=== PATIENT | female | born 1990 | race Caucasian/White ===

== ENCOUNTER 2018-05-26 08:18 | Day surgery (SDC) | payer OTHER, SELFPAY ==
[2018-05-20 17:38] LABS: Hematocrit 39.6 % (37-47); Hemoglobin 12.9 g/dl (12.0-15.0); Mean Corp Hgb Conc 32.6 g/gl (32-36); Mean Corpuscular Hgb 30.5 pg (27.0-32.0); Mean Corpuscular Volume 93.6 fL (81-99); Mean Platelet Vol. 9.7 fl (6.2-12.0); Platelet Count 277 K/mm3 (150-450); RBC Distribution Width CV 12.7 % (11.6-14.6); Red Blood Count 4.23 M/mm3 (4.2-5.4); Scan Indicated on CBC? Y/N NO; White Blood Count 7.2 K/mm3 (4.4-11.0)
[2018-05-20 17:51] LABS: Prothrombin Time (Protime)PT. 13.6 SECONDS (11.7-14.9)
[2018-05-20 17:52] LABS: Partial Thromboplast Time 34.4 Seconds (24.1-36.2)
[2018-05-20 18:06] LABS: AST(SGOT) 33 U/L (15-37); Alanine Aminotransfer ALT/SGPT 77 U/L (13-56); Albumin, Serum 4.4 g/dL (3.2-5.0); Alkaline Phosphatase 54 U/L (45-117); Bilirubin, Direct 0.47 mg/dL (0.00-0.30); Globulin 3.6 g/dL (2.2-4.2)
[2018-05-26 08:42] LABS: Internal QC Validated? YES +Cl - CLEAR BKGD; Pregnancy, Urine Negative Negative
[2018-05-26 08:44] VITALS: BP 131/82; PULSE 78; RESP 16; TEMP 37.1; O2SAT 100; BMI 25.4
[2018-05-26] MEDS: Heparin Injection (Vial) 5,000 UNIT/ML VIAL 5000 UNIT SC (08:59)
[2018-05-26] MEDS: Bupivacaine Mpf 0.5% 30 ML VIAL (11:44)
[2018-05-26 11:59] VITALS: BP 116/83; BP 131/82; PULSE 109; RESP 18; TEMP 37.4; O2SAT 99
[2018-05-26 12:01] LABS: Bilirubin, Direct 0.47 mg/dL (0.00-0.30); Indirect Bilirubin 1.53 mg/dL (0.00-1.00)
--- NOTE | 2018-05-26 12:01 | PCM.IMDPSTOP ---
Problem List (1) Dysmenorrhea Status: Acute Immediate Post-Op Note Date of Procedure: 05/26/18 Primary Surgeon/Physician: Edith Mcduffie, law office manager: Liv Dinero Post-Operative Diagnosis: Dysmenorrhea Surgery/Procedure Performed:: Dysmenorrhea Description of Surgical Findings:: Normal pelvic anatomy No evidence of endometriosis Scant bowel adhesions Estimated Blood Loss: 10ml Specimen's removed: none Type of Anesthesia:: General - Admit VTE Documentation VTE Present on Admission: No VTE Mechan Device Prophylaxis: SCD's VTE Pharm Prophylaxis ordered?: No
--- NOTE | 2018-05-26 12:04 | DCINST_ITS ---
- Discharge Diagnoses Current Active Problems: Current Active and Chronic Problems Dysmenorrhea (Acute) - painful periods You will use the following diet at home:: No restrictions Your food should be the consistency of: Regular Discharge Activity: Return to Normal Activity, May not drive while taking narcotic pain medications., May Shower, - - No driving for 48-72 hours May resume sexual activity in: - - 2-4 weeks Lifting Restrictions: 10-20 lb Call your doctor if your incision/area has: Continuous Slow Oozing, Sudden Increased Bleeding, Increased Pain/ Swelling, Increased Redness Call your doctor if you observe: Fever of 101 or Higher, Inability to urinate, Inability to have a bowel movement, Using more than one pad per hour, Shortness of breath, Chest pain, Calf discomfort, Uncontrolled pain Suture Line Care: Avoid Pulling/Pushing Remove Dressing in (days):: 1 Cleanse incision/area with: Soap & Water Allergies/Adverse Reactions: Allergies No Known Allergies Allergy (Verified 05/19/18 11:14) Medications to take at Discharge Nilotinib HCl [Tasigna] 300 mg PO BID 04/18/15 Potassium Chloride [K-Dur] 20 meq PO BID 10/09/16 Docusate Sodium [Colace] 100 mg PO BID PRN PRN #60 cap 05/26/18 Oxycodone [Oxyir] 5 mg PO Q4H PRN PRN 3 Days #18 tablet 05/26/18 The following prescriptions were given: Oxycodone [Oxyir] 5 mg PO Q4H PRN PRN 3 Days #18 tablet PRN Reason: Severe Pain (6-10/10) Docusate Sodium [Colace] 100 mg PO BID PRN PRN #60 cap PRN Reason: Constipation Primary Care Physician: Salvatore Dinero MD [Primary Care Provider] - Test Results: Test results from this visit will be discussed in further detail at your follow- up appointment, if applicable. Please Follow Up With: Edith Mcduffie MD When: 2-4 weeks
[2018-05-26 12:15] VITALS: BP 114/77; BP 131/82; PULSE 102; RESP 18; O2SAT 100
[2018-05-26 12:16] LABS: GGTP 43 U/L (5-55)
[2018-05-26 12:30] VITALS: BP 118/77; BP 131/82; PULSE 88; RESP 18; O2SAT 97
[2018-05-26 12:40] VITALS: BP 110/80; BP 131/82; PULSE 77; RESP 18; TEMP 36.8; O2SAT 98
[2018-05-26 13:42] VITALS: BP 109/69; BP 131/82; PULSE 90; RESP 16; TEMP 37.1; O2SAT 96
--- NOTE | 2018-05-26 20:00 | PCM.OPRPT ---
Problem List (1) Dysmenorrhea Status: Acute Report of Operation Date of Procedure: 05/26/18 Pre-Operative Diagnosis: Dysmenorrhea, r/o endometriosis Post-Operative Diagnosis: Dysmenorrhea Surgery/Procedure Performed:: Dysmenorrhea Description of Surgical Findings:: Normal pelvic anatomy No evidence of endometriosis Scant bowel adhesions high school professional: Liv Dinero Type of Anesthesia:: General Anesthesiologist: Jamie Kasper Specimen's removed: none Estimated Blood Loss (mL): 10ml Fluids Replaced: 1000mL Description of Procedure: Indications: Ms. Botello is a 28-year-old nulligravida with history of dysmenorrhea refractory to medical management. Following counseling she opted to proceed with diagnostic laparoscopy to rule out possible endometriosis. Risks, benefits, indications, alternatives of procedure were reviewed at length. Informed consent was obtained. Procedure: The patient was taken to the operating room and signed and was performed. She was placed in the dorsal supine position and induced under general anesthesia. She was then placed into dorsal lithotomy and her arms tucked at her sides. An examination under anesthesia was performed. The perineum and abdomen were prepped and draped in sterile fashion. Timeout was performed. Patient was placed into high lithotomy and weighted speculum placed into the vagina and the cervix visualized and grasped at the anterior cervical lip using a single-tooth tenaculum. A Shafer cannula was placed for uterine manipulation and secured to the tenaculum. The patient was then placed into low lithotomy attention turned to the abdomen. An infraumbilical incision was made using the scalpel and a Veress needle was placed with successful hanging drop test and no aspirate. The abdomen was insufflated to 15 mmHg. The Veress needle was removed and a 5 mm trocar placed at the site under laparoscopic guidance. The patient was placed into Trendelenburg. A suprapubic incision was made and a 5 mm port was placed at this site. The abdomen and pelvis were inspected there was no evidence of endometriotic implants or other pathology. The uterus, bilateral tubes and ovaries were normal in appearance. The procedure was complete. The abdomen was desufflated and the trochars removed. The skin was closed using 4-0 Monocryl. Steri-Strips and OpSite were placed over the incisions. The urine manipulator was removed. The patient was placed into dorsal supine position, awakened, extubated and transferred to the recovery room without complication. - Complications None - Admit VTE Documentation VTE Present on Admission: No - Prior h/o VTE VTE Mechan Device Prophylaxis: SCD's VTE Pharm Prophylaxis ordered?: Yes
== END 2018-05-26 13:50 | disposition home or self-care (01) ==
LOC: SDC 08:21 → AC 08:22
PROVIDERS: Anesthesiology; Family Provider Family Medicine; PCP Family Medicine; Visit Provider Obstetrics & Gynecology
PROC: (CPT 49320; principal; 2018-05-26 10:30)
DX: N94.6 Dysmenorrhea, unspecified (principal); C92.10 Chronic myeloid leukemia, BCR/ABL-positive, not having achieved remission; Z79.899 Other long term (current) drug therapy
CPT/HCPCS: 49320; 80076; 81025; 82247; 82248; 82977; 85027; 85610; 85730; 86850; 86900; J7120; J2405

== ENCOUNTER → 2018-07-29 10:26 | Outpatient (CLI) | payer OTHER, SELFPAY ==
[2018-07-29 11:33] LABS: Progesterone Level 10.11 ng/mL (See Comment)
== END ==
PROVIDERS: Family Provider Family Medicine; PCP Family Medicine; Referring Provider Obstetrics & Gynecology; Visit Provider Obstetrics & Gynecology
DX: N94.6 Dysmenorrhea, unspecified (principal); N97.0 Female infertility associated with anovulation
CPT/HCPCS: 36415; 84144

== ENCOUNTER → 2018-08-10 08:18 | Outpatient (CLI) | payer OTHER, SELFPAY ==
[2018-08-10 10:03] LABS: Glucose 75GTT - 30 minutes 151 mg/dL (100-160)
[2018-08-10 10:05] LABS: Glucose 75GTT - Fasting 89 mg/dL (70-99)
[2018-08-10 10:19] LABS: Insulin 75GTT - Fasting 5.5 mU/L (2.6-37.6)
[2018-08-10 10:23] LABS: Insulin 75GTT - 30 MIN 123.6 mU/L (Not Estab.)
[2018-08-10 10:51] LABS: AST(SGOT) 26 U/L (15-37); Alanine Aminotransfer ALT/SGPT 58 U/L (13-56); Albumin, Serum 4.3 g/dL (3.2-5.0); Alkaline Phosphatase 65 U/L (45-117); Bilirubin, Direct 0.43 mg/dL (0.00-0.30); Estradiol 32.2 pg/mL; Follicle Stimulating Hormone 10.4 mIU/mL; Globulin 3.4 g/dL (2.2-4.2); Protein, Total 7.7 g/dL (6.4-8.2); T4 Free Direct 1.05 ng/dL (0.76-1.46); Thyroid Stim Hormone (TSH) 1.12 uIU/mL (0.358-3.74)
[2018-08-10 11:27] LABS: Glucose 75GTT - 120 minutes 137 mg/dL (70-140)
[2018-08-10 11:27] LABS: Glucose 75GTT - 60 minutes 90 mg/dL (100-160)
[2018-08-10 11:40] LABS: Insulin 75GTT - 60 min 18.2 mU/L (Not Estab)
[2018-08-10 11:40] LABS: Insulin 75GTT - 120 min 267.2 mU/L (Not Estab.)
[2018-08-12 13:10] LABS: DHEA Sulfate 224.5 ug/dL (84.8-378.0)
[2018-08-16 11:53] LABS: 17-Hydroxyprogesterone 22 ng/dL (.)
== END ==
PROVIDERS: Family Provider Family Medicine; PCP Family Medicine; Referring Provider Obstetrics & Gynecology; Visit Provider Obstetrics & Gynecology
DX: N92.1 Excessive and frequent menstruation with irregular cycle (principal); N94.6 Dysmenorrhea, unspecified
CPT/HCPCS: 36415; 80076; 82533; 82627; 82670; 82951; 82952; 83001; 83498; 83525; 84146; 84270; 84403; 84439; 84443; 84481; 82626

== ENCOUNTER → 2018-09-07 13:10 | Outpatient (CLI) | payer OTHER, SELFPAY ==
[2018-09-07 15:47] LABS: Follicle Stimulating Hormone 10.2 mIU/mL
== END ==
PROVIDERS: Visit Provider Obstetrics & Gynecology
DX: E28.8 Other ovarian dysfunction (principal)
CPT/HCPCS: 36415; 83001

== ENCOUNTER → 2021-02-26 14:34 | Outpatient (CLI) | payer OTHER, SELFPAY ==
[2021-02-26 18:17] LABS: Erythrocyte Sedimentation Rate 2 mm/hr (0-30)
[2021-02-26 18:28] LABS: AST(SGOT) 25 U/L (15-37); Alanine Aminotransfer ALT/SGPT 55 U/L (13-56); Albumin, Serum 4.1 g/dL (3.2-5.0); Alkaline Phosphatase 63 U/L (45-117); Bilirubin, Direct 0.51 mg/dL (0.00-0.30); GGTP 15 U/L (5-55); Globulin 3.4 g/dL (2.2-4.2); Protein, Total 7.5 g/dL (6.4-8.2)
[2021-02-28 16:47] LABS: ANTINUCLEAR ANTIBODIES DIRECT Negative (Negative)
[2021-02-28 16:48] LABS: Anti-Smooth Muscle ABS 6 Units (0-19)
== END ==
PROVIDERS: PCP Internal Medicine Hematology & Oncology; Referring Provider Internal Medicine Gastroenterology; Visit Provider Internal Medicine Gastroenterology
DX: K75.9 Inflammatory liver disease, unspecified (principal)
CPT/HCPCS: 36415; 80076; 82977; 83516; 85652; 86038

== ENCOUNTER → 2021-03-03 08:53 | Outpatient (CLI) | payer OTHER, SELFPAY ==
--- NOTE | 2021-03-03 08:57 | US_ITS ---
STUDY: ABDOMINAL ULTRASOUND - RIGHT UPPER QUADRANT REASON FOR VISIT: Female, 31 years old ELEVATED BILIRUBIN . Status post cholecystectomy. TECHNIQUE: Ultrasound evaluation of the right upper quadrant was performed with real-time and static navarro-scale imaging. TECHNICAL QUALITY: Adequate. COMPARISON: None. FINDINGS: Liver: The liver measures 13.9 cm. There is normal echogenicity of the liver. The bile ducts are within normal limits. There is hepatic color flow. The direction of portal flow is hepatopetal. There is no demonstrated mass lesion. Gallbladder: The patient is status post cholecystectomy. Common Bile Duct (C.B.D.): The common bile duct measures 4.1 mm. Pancreas: Normal size of the head, body and tail of the pancreas. There is normal echogenicity of the pancreas. There is no demonstrated pancreatic mass or cyst. Right Kidney: Normal size of the right kidney. The right kidney measures 10.2 cm x 5.8 cm x 5.9 cm. Normal renal cortex. The right cortex measures 2.0 cm. There is no demonstrated renal mass or cyst. There is no right hydronephrosis. US/Liver IMPRESSION: Status post cholecystectomy. No acute abnormality is seen. Electronically Signed: Nehemiah Willingham MD at 9:57 EDT , Service support ,
== END ==
PROVIDERS: PCP Internal Medicine Hematology & Oncology; Referring Provider Internal Medicine Gastroenterology; Visit Provider Internal Medicine Gastroenterology
DX: R17 Unspecified jaundice (principal)
CPT/HCPCS: 76705

== ENCOUNTER 2021-12-16 16:48 | Outpatient (CLI) | payer OTHER, SELFPAY ==
--- NOTE | 2021-12-16 | EMB_PTH ---
PATIENT: PAOLO LARES [facility]: [facility] U#:[id number] AGE/SX: 31/F ROOM: RE12/16/[address]: Dr. Edith Goncalves MD : 1990 BED: DIS: 12/16/2021 SPEC #: [id number] RECD: 12/16/21 17:02 STATUS: BRODY RERomelia #: [id number] FERNANDO: 12/16/21 00:[address]: Edith Gracia DEPT: SURGICAL PATHOLOGY RECD BY: Toño Murguia ENTERED: 12/17/21 11:48 SP TYPE: ENDOM BX/C ISIAH DR: Dr. Carlos Rios DO Tissues: Endometrium, NOS Procedures: Surgery Specimen Level IV HEADER OPERATION: Endometrial biopsy PRE-OP DIAGNOSIS: Insurance requested TISSUE SUBMITTED: Endometrial biopsy MICROSCOPIC DIAGNOSIS Endometrial biopsy: Proliferative endometrium with glandular and stromal breakdown. SJ:ashish 12/18/2021 MICROSCOPIC DESCRIPTION Slides are reviewed. GROSS DESCRIPTION Received in fixative is one container labeled with the patient's name and designated endometrial biopsy. The specimen consists of multiple irregular and elongated fragments of light to dark esqueda soft tissue that in aggregate measure 2.5 x 2 x 0.2 cm. The specimen is totally submitted in one cassette. / AM:ashish 12/17/2021 TC:5 CPT: 14527
== END 2021-12-16 23:59 | disposition home or self-care (01) ==
LOC: LABSPEC 16:50
PROVIDERS: PCP Internal Medicine Hematology & Oncology; Visit Provider Obstetrics & Gynecology
DX: N85.8 Other specified noninflammatory disorders of uterus (principal)
CPT/HCPCS: 88305

== ENCOUNTER 2021-12-30 12:20 | Outpatient (CLI) | payer OTHER, SELFPAY ==
--- NOTE | 2021-12-30 12:23 | BI_ITS ---
MAMMOGRAPHY - BILATERAL SCREENING REASON FOR EXAM: Female, 31 years old. Routine annual screening examination. PERTINENT HISTORY: Mother with breast cancer. Grandmother with breast cancer. TECHNIQUE: Digital bilateral breast juan j (3D mammographic acquisition) in the CC and MLO projections. 2-D mediolateral oblique (MLO) and craniocaudad (CC) views of both breasts were obtained. CAD: Full Field Digital Mammography with Computer Added Detection was performed. COMPARISON: None. Baseline examination. FINDINGS: Breast Composition: The breasts are heterogeneously dense, which may obscure small masses. There are no dominant masses or suspicious calcifications. No other significant abnormalities are identified. BI/SCRN MAMM (CAD)W/JUAN J BILAT IMPRESSION: Negative screening mammogram. Yearly followup mammogram recommended. (A) ASSESSMENT CATEGORY: BIRADS Category 1: Negative. A letter regarding these results will be sent to the patient by the facility within 30 days. Approximately 10% of breast cancers are not detected by mammography. A normal mammogram should not delay biopsy of a clinically suspicious abnormality. [id number] Electronically Signed: Nehemiah Willingham MD at 13:12 EST ,
== END 2021-12-30 23:59 | disposition home or self-care (01) ==
LOC: OPBI 12:21
PROVIDERS: PCP Internal Medicine Hematology & Oncology; Visit Provider Obstetrics & Gynecology
DX: Z12.31 Encounter for screening mammogram for malignant neoplasm of breast (principal); Z80.3 Family history of malignant neoplasm of breast
CPT/HCPCS: 77063; 77067

== ENCOUNTER 2022-02-05 11:46 | Day surgery (SDC) | payer OTHER, SELFPAY ==
[2022-01-30 13:38] LABS: Hematocrit 40.7 % (37-47); Hemoglobin 13.7 g/dL (12.0-15.0); Mean Corp Hgb Conc 33.7 g/dL (32-36); Mean Corpuscular Volume 89.1 fL (81-99); Mean Platelet Vol. 11.1 fl (6.2-12.0); Platelet Count 287 K/mm3 (150-450); RBC Distribution Width CV 13.2 % (11.6-14.6); RBC Distribution Width SD 42.9 fl (35.1-43.9); Red Blood Count 4.57 M/mm3 (4.2-5.4); White Blood Count 7.1 K/mm3 (4.4-11.0)
[2022-01-30 14:04] LABS: ALB/GLOB Ratio 1.2 RATIO (0.9-2.4); AST(SGOT) 15 U/L (15-37); Alanine Aminotransfer ALT/SGPT 34 U/L (13-56); Albumin, Serum 4.3 g/dL (3.2-5.0); Alkaline Phosphatase 60 U/L (45-117); Anion Gap 5 (5-15); BUN 10 mg/dL (7-18); BUN/Creat Ratio 12.7 RATIO (10-20); Chloride 107 mmol/L (98-107); Creatinine, Serum 0.78 mg/dL (0.55-1.02); EST Glomerular Filtration Rate 92 mL/min (>60); Est Glom Filt Rate - Afr Amer 111 mL/min (>60); Globulin 3.7 g/dL (2.2-4.2); Glucose 90 mg/dL (74-106); Potassium 4.1 mmol/L (3.5-5.1); Sodium Level 136 mmol/L (136-145)
[2022-02-05] VITALS (8 sets, daily range): BP systolic 110–132; BP diastolic 71–89; PULSE 89–107; RESP 16–18; TEMP 36.6–37.4; O2SAT 95–99; BMI 26.1
--- NOTE | 2022-02-05 | FALS_PTH ---
PATIENT: PAOLO LARES LOC: [facility] [place] U#:[id number] AGE/SX: 32/F ROOM: RE02/05/[address]: Dr. Edith Goncalves MD : 1990 BED: DIS: 02/05/2022 SPEC #: [id number] RECD: 02/06/22 07:01 STATUS: BRODY RERomelia #: [id number] FERNANDO: 02/05/22 00:[address]: Edith Gracia DEPT: SURGICAL PATHOLOGY RECD BY: Joselito Georges ENTERED: 02/06/22 10:39 SP TYPE: FALL TUBES OTHR DR: Deb Garner, COMPUTER PROCESSING SCHEDULER-C Tissues: A - Endometrium, NOS 2 - Fallopian tube Procedures: Surgery Specimen Level II Surgery Specimen Level IV HEADER OPERATION: Laparoscopic bilateral salpingectomy, hysteroscopy, D & C Miinerva PRE-OP DIAGNOSIS: Menorrhagia TISSUE SUBMITTED: A ? Endometrial curettings, B ? Bilateral fallopian tubes MICROSCOPIC DIAGNOSIS A. Endometrium, curettings: Secretory endometrium. B. Right and left fallopian tubes, bilateral salpingectomies: Complete cross-sections of fallopian tubes with no pathologic change. AM:ashish 02/09/2022 MICROSCOPIC DESCRIPTION Slides are reviewed. GROSS DESCRIPTION A - Received in fixative is one container labeled with the patient's name and designated endometrial curettings. The specimen consists of multiple fragments of hemorrhagic soft tissue that in aggregate measure 2.5 x 1 x 0.2 cm. The specimen is totally submitted in one cassette. B - Received in fixative is one container labeled with the patient's name and designated bilateral fallopian tubes. The specimen consists of bilateral fallopian tubes including fimbrial ends measuring 8 cm in length and 0.5 cm in diameter and 7.5 cm in length and 0.5 cm in diameter. The fallopian tubes are not identified as right or left. Sections reveal unremarkable cut surfaces. Swatcher sections are submitted in two cassettes with each cassette containing one fallopian tube. / SJ:ashish 02/06/2022 TC:5 CPT: 05116, 22952 x2
--- NOTE | 2022-02-05 12:08 | HP.PCM.OB_ITS ---
History and Physical Date of Admission: 02/05/22 Surgical History and Physical Date: 01/30/2022 Name: JAQUAN LUGO Age: 32 Date of : 1990 Jaquan Lugo, a 32 year old female 0 0 0 0 0, presents for Hysteroscopy, D, Annie endometrial ablation, Laparoscopic bilateral salpingectomy on February 05, 2022 at . -- Jaquan is here for pre-op visit. She will discuss procedures with Dr BENSON prior to reading and signing consents. LMT as above. Maryam is scheduled for hysteroscopy, dilation and curettage with laparoscopic bilateral salpingectomy, possible Liletta IUD placement. She is uncertain about the Liletta placement at this time. 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 joão MEDICATIONS HISTORY: Current medications prescribed by our practice are: 1. hydrocortisone-pramoxine 1 %-1 % rectal cream, Apply thin layer to affected area twice daily x 1 week as needed 2. hydrocortisone-pramoxine 2.5 %-1 % topical cream, Apply to affected area twice daily for 1 to 2 weeks Patient is also takin. Tasigna 150 mg capsule, two tablets twice daily 2. potassium chloride ER 20 mEq tablet,extended release, 1 PO BID ALLERGIES: NKDA Infections - Chicken pox Illnesses - chronic myeloid leukemia, Gilbert's disease Accidents - None Hospitalizations - Leukemia, VTE Review of Systems: GENERAL - Denies fever, or chills SKIN - Denies skin changes EYES - Denies visual changes EARS - Denies difficulty hearing NOSE - Denies nasal congestion or bleeding MOUTH - Denies sore throat or difficulty swallowing NECK - Denies pain or swelling RESPIRATORY - Denies shortness of breath or wheezing CARDIOVASCULAR - Denies palpitations or chest pain GASTROINTESTINAL - Denies nausea, vomiting, diarrhea, constipation GENITOURINARY - Denies dysuria, frequency of urination, incontinence of urine MUSCULOSKELETAL - Denies joint or muscle pain NEUROLOGICAL - Denies localized numbness or weakness PSYCHIATRIC - Denies depression or anxiety ENDOCRINE - Denies heat or cold intolerance, weight loss or gain HEMATO-IMMUNOLOGIC - Denies excesive bleeding with cuts SOCIAL HISTORY: Alcohol Use - denies drinking Smoking - used to smoke but quit Diet - gluten free, dairy free Lifestyle - Exercise - minimal Seat Belt Use - always Employer - homemaker Illicit Drug Use - denies use of street drugs Sexual Activity - single sexual partner Residence - Lives with Spouse-Sig Other Name - Shelton Spouse-Sig Other Occupation - [employer] Control - condoms FAMILY HISTORY: Mother: Breast cancer. Paternal Grandmother: Breast cancer. Paternal Aunt: lung cancer. MENSTRUAL HISTORY: LMP Known?- DefiniteAmount/Duration - 5 days, Regularity - Regular, Frequency - monthly days, LMP - 01/10/22, Age Onset Menarche - 18 PAST PREGNANCIES: Total Pregnancies - 0; Full Term Pregnancies - 0; Premature - 0; Abortions, Induced - 0; Abortions, Spontaneous - 0; Ectopics - 0; Multiple Births - 0; Living Children - 0 SURGICAL HISTORY: 1. 05/26/2018 Dx laparoscopy ; Edith Goncalves MD - 2. cholecystectomy, Aug 2015 ; - PHYSICAL EXAM BP- 140/86 Sitting, Right arm, regular cuff Temp- 98.6 Taken Orally Weight- 151.34961 lbs Height- 64 inch BMI:[id number] CONSTITUTIONAL - NAD, well nourished, and well developed SKIN - No rash, lesions, or ulcers HEENT - normocephalic, atraumatic, sclerae anicteric LUNGS - normal respiratory rate and rhythm ABDOMEN - Without hepatosplenomegaly, distention, masses, rebound, or guarding; normal bowel sounds; no hernias NEUROLOGICAL - normal gait, normal balance, normal motor PSYCHIATRIC - A and O to time, place, person, mood and affect ULTRASOUND 12/16/21 UTERUS: 8.8 x 5.4 x 4.3cm. ENDOMETRIAL ECHO: 2.6mm. RIGHT OVARY: 2.9 x 2.2 x 2.1cm. small follicles seen. LEFT OVARY: 3.9 x 2.3 x 2cm. small follicles seen. BLADDER: No bladder masses visualized. 12/16/21 Endometrial biopsy - Proliferative endometrium with glandular and stromal breakdown. 07/03/20 PAP - NILM ASSESSMENT/PLAN: 1. Encounter For General Counseling And Advice On Contraception, Excessive And Frequent Menstruation With Regular Cycle and Personal History Of Venous Thrombosis And Embolism Plan for laparoscopic bilateral salpingectomy with hysteroscopy, dilation and curettage, Annie endometrial ablation. Reviewed NOT adviseable following endometrial ablation Procedural r/b/i/a reviewed, consents signed Discussed LNG IUD for potentiation of amenorrhea or reduced bleeding with ablation. Patient considering further. Preop labs reviewed - Bilirubin slightly elevated however hx [place] disease Heparin ppx preop
[2022-02-05] MEDS: Heparin Injection (Vial) 5,000 UNIT/ML VIAL 5000 UNIT SC (12:23)
[2022-02-05] MEDS: Lactated Ringers 1,000 ML 15 ML IV (12:27)
[2022-02-05 12:43] LABS: Internal QC Validated? YES +Cl - CLEAR BKGD; Pregnancy, Urine Negative Negative
[2022-02-05] MEDS: Lidocaine 1% (20 ml mdv) 20 ML Vial (15:15)
[2022-02-05] MEDS: Bupivacaine Mpf 0.5% 30 ML VIAL (15:47)
--- NOTE | 2022-02-05 17:04 | OP.PCM_ITS ---
Problems Associated Problem List Diagnoses (1) Menorrhagia: (2) Request for sterilization: Report of Operation Date of Procedure: 02/05/22 Pre-Operative Diagnosis: 1. Menorrhagia 2. Sterilization request Post-Operative Diagnosis: 1. Menorrhagia 2. Sterilization request Surgery/Procedure Performed:: 1. Hysteroscopy 2. Dilation and curettage 3. Annie endometrial ablation 4. Laparoscopic bilateral salpingectomy Description of Surgical Findings:: normal tubes and ovaries bilaterally, normal uterus Surgeon: Edith Gracia finishing inspector: Kiko Rudolph Anesthesiologist: Zhao Howell Specimen's removed: 1. endometrial curettings 2. bilateral tubes Estimated Blood Loss (mL): 5 Description of Procedure: Indications: 32-year-old G0, P0 presents for scheduled hysteroscopy D&C Annie endometrial ablation and bilateral laparoscopic salpingectomy. Patient has a longstanding history of heavy menstrual periods refractory to medical management and previously had blood clots on hormonal control. She was extensively counseled regarding being contraindication post ablation and indicated she did not desire childbearing and opted to proceed with salpingectomy. Informed consent was obtained prior to the procedure. Procedure: Patient was brought to the operating room and spinal was performed. She is placed in dorsal supine position and induced under general anesthesia and intubated. She was repositioned into dorsal lithotomy and examination under anesthesia was performed. The perineum and abdomen were prepped and draped in sterile fashion. Downing catheter was placed into the bladder. Patient was placed into high lithotomy and bivalve speculum placed vaginally. The cervix was grasped using a single-tooth tenaculum and a paracervical block was placed with a total of 20 cc of 1% lidocaine. The uterus was sounded, cervix was subsequently dilated and hysteroscopy was performed. Hysteroscope was removed and sharp curettage performed. The Annie endometrial ablation system was introduced into the uterus and the ablation cycle was performed. Once complete the Annie array was removed. The tenaculum was removed from the cervix the tenaculum site was hemostatic and the speculum was removed from the vagina. Sponge stick was placed vaginally. Attention was turned to the abdomen the patient was placed into low lithotomy. infraumbilical incision was made using scalpel. Veress needle was introduced with successful hanging drop test and no aspirate with abdominal entry pressure of 0 mmHg. The abdomen was insufflated to 15 mmHg. Veress needle was removed and a 5 mm trocar was introduced under laparoscopic guidance confirming entry into the abdominal cavity. The patient was placed into Trendelenburg. Bilateral tap block was placed using half percent Sensorcaine under laparoscopic guidance. Right and left lower quadrant incisions were made using transillumination and additional 5 mm ports were placed at the sites. The abdomen and pelvis were inspected. The left tubal fimbria was identified in the left tube was transected from the mesosalpinx to the level of the uterine cornua with completion of salpingectomy using the Enseal device. In similar fashion the right tubal fimbria was also identified and right salpingectomy also performed. The tubes were removed via the ports. There is excellent hemostasis. The abdomen was desufflated and the ports removed. The skin was closed using 4-0 Monocryl by the INSTRUMENT PANEL ASSEMBLER under my supervision. Additional Sensorcaine was administered at the incisional sites. Steri-Strips and OpSite dressing was placed over the incisions. The sponge stick was removed from the vagina. The patient was placed into dorsal supine, awakened, extubated and transferred to the recovery room without complication. Complications None Admit VTE Documentation VTE Present on Admission: No VTE Mechan Device Prophylaxis: SCD's VTE Pharm Prophylaxis ordered?: Yes
--- NOTE | 2022-02-05 18:13 | DCINST_ITS ---
Discharge Instructions Diet Discharge Diet: No restrictions Activity Discharge Activity: Return to Normal Activity and May Shower May resume sexual activity in: - (2-4 weeks) Lifting Restrictions: 10lb Dressing / Incision Call your doctor if you observe: Fever of 101 or Higher, Using more than 1 pad per hour, Shortness of breath, Chest pain, Calf discomfort and Uncontrolled pain Follow Up Care Please Follow Up With: Edith Goncalves MD When: 2-4 weeks Test Results: Test results from this visit will be discussed in further detail at your follow-up appointment, if applicable. Discharge Plan Admission Primary Reason for Your Visit: Hysteroscopy, Dilation and curettage, Removal of tubes Attending Provider: Edith Gracia Primary Care Provider: Deb Garner NP Instructions Additional Instructions / Restrictions: Take Ibuprofen 800mg - 1 tablet by mouth every 8 hours as needed Discharge Orders/Prescriptions Prescriptions: No Action Tasigna 150 MG capsule 300 mg PO BID RF: 0 potassium chloride [Klor-Con M20] 20 MEQ tablet 20 meq PO BID RF: 0 famotidine [Pepcid] 20 mg Tablet 20 mg PO QHS RF: 0 Referrals / Follow Up: Deb Garner NP, [employer] SUPERVISOR-C [Primary Care Provider] - Disposition Disposition (needs filled in before D/C Order can be placed): Home, Self Care
== END 2022-02-05 23:59 | disposition home or self-care (01) ==
LOC: SDC 11:48 → AC 11:48
PROVIDERS: Anesthesiology; PCP Nurse Practitioner Primary Care; Referring Provider Obstetrics & Gynecology; Visit Provider Obstetrics & Gynecology
PROC: 0U5B8ZZ Destruction of Endometrium, Via Natural or Artificial Opening Endoscopic (ICD-10-PCS; CPT 58558; principal; 2022-02-05 13:15)
DX: Z30.2 Encounter for sterilization (principal); C92.90 Myeloid leukemia, unspecified, not having achieved remission; N92.0 Excessive and frequent menstruation with regular cycle; K21.9 Gastro-esophageal reflux disease without esophagitis; Z79.899 Other long term (current) drug therapy; Z87.891 Personal history of nicotine dependence; Z20.822 Contact with and (suspected) exposure to COVID-19
CPT/HCPCS: 58563; 58661; 00840; 36415; 80053; 81025; 85027; 86850; 86900; 86901; 87426; 88302; 88305; C9803; J7120; C1760; J2405

== ENCOUNTER → 2022-10-28 | Outpatient (CLI) | payer BC, SELFPAY | END | disposition home or self-care (01) | LOC: LAB 13:31 | PROVIDERS: PCP Nurse Practitioner Primary Care; Referring Provider Obstetrics & Gynecology; Visit Provider Obstetrics & Gynecology | DX: E28.9 Ovarian dysfunction, unspecified (principal) | CPT/HCPCS: 36415; 82627; 82626 ==

== ENCOUNTER → 2022-12-22 | Outpatient (CLI) | payer BC, SELFPAY ==
[2022-12-22 11:42] LABS: Estradiol 39.3 pg/mL
[2022-12-25 09:09] LABS: Testosterone, Free 0.18 ng/dL (0.10-0.85); Testosterone, Total 12 ng/dL (13-71)
[2022-12-25 19:50] LABS: Testosterone, % Free 1.54 % (0.50-2.80)
== END | disposition home or self-care (01) ==
LOC: LAB 10:56
PROVIDERS: PCP Nurse Practitioner Primary Care; Visit Provider Obstetrics & Gynecology
DX: R79.89 Other specified abnormal findings of blood chemistry (principal)
CPT/HCPCS: 36415; 82670; 84402; 84403

== ENCOUNTER → 2023-01-05 | Outpatient (CLI) | payer BC, SELFPAY ==
--- NOTE | 2023-01-05 11:01 | MRI_ITS ---
STUDY: BILATERAL BREAST MR WITHOUT AND WITH CONTRAST REASON FOR EXAM: Female, 32 years old. Family history of malignant neoplasm. TECHNIQUE: Multi-sequence multi-echo imaging of both breasts was performed with a dedicated breast coil. T1-weighted and T2-weighted images were performed before the administration of contrast. T1-weighted images were also performed after the intravenous administration of 15ml of Clariscan contrast. COMPARISON: Bilateral screening mammogram dated December 30, 2021 FINDINGS: RIGHT BREAST: Homogeneously dense breast tissue with minimal background enhancement. There are no abnormal enhancing masses or areas of non-mass enhancement in the right breast. LEFT BREAST: Homogeneously dense breast tissue with minimal background enhancement. No abnormal enhancing masses or areas of non-mass enhancement in the left breast. No enlarged or abnormal lymph nodes. No abnormality in the visualized regions of the chest or liver. MRI/Breast Bilateral W/O and W IMPRESSION: No abnormality of the bilateral breast MRI with contrast. Yearly follow-up screening mammogram with the appropriate. Alternating mammogram with breast MRI with contrast should be considered. CATEGORY: BIRADS Category 2: Benign. A letter regarding these results will be sent to the patient by the facility within 30 days. Electronically Signed: Andrew Dotson, at 9:58 EST ,
== END | disposition home or self-care (01) ==
PROVIDERS: PCP Nurse Practitioner Primary Care; Referring Provider Obstetrics & Gynecology; Visit Provider Obstetrics & Gynecology
DX: R92.8 Other abnormal and inconclusive findings on diagnostic imaging of breast (principal); Z80.3 Family history of malignant neoplasm of breast
CPT/HCPCS: 77049; A9575; A4216; C8908

== ENCOUNTER → 2023-03-03 | Outpatient (CLI) | payer BC, SELFPAY ==
[2023-03-03 14:40] LABS: Estradiol 33.5 pg/mL
[2023-03-10 11:09] LABS: Testosterone, % Free 0.83 % (0.50-2.80); Testosterone, Free 0.08 ng/dL (0.10-0.85); Testosterone, Total 10 ng/dL (8-60)
== END | disposition home or self-care (01) ==
LOC: LAB 13:15
PROVIDERS: PCP Nurse Practitioner Primary Care; Referring Provider Obstetrics & Gynecology; Visit Provider Obstetrics & Gynecology
DX: E28.9 Ovarian dysfunction, unspecified (principal); R79.89 Other specified abnormal findings of blood chemistry
CPT/HCPCS: 36415; 82670; 84402; 84403

== ENCOUNTER → 2023-05-05 | Outpatient (CLI) | payer BC, SELFPAY ==
[2023-05-09 19:07] LABS: Testosterone, % Free 1.43 % (0.50-2.80); Testosterone, Free 0.94 ng/dL (0.10-0.85); Testosterone, Total 66 ng/dL (8-60)
== END | disposition home or self-care (01) ==
LOC: LAB 13:35
PROVIDERS: PCP Nurse Practitioner Primary Care; Referring Provider Obstetrics & Gynecology; Visit Provider Obstetrics & Gynecology
DX: R79.89 Other specified abnormal findings of blood chemistry (principal)
CPT/HCPCS: 36415; 84402; 84403

== ENCOUNTER → 2024-01-18 | Outpatient (CLI) | payer BC, SELFPAY ==
--- NOTE | 2024-01-18 11:07 | MRI_ITS ---
STUDY: BILATERAL BREAST MR WITHOUT AND WITH CONTRAST REASON FOR EXAM: Female, 34 years old. Family history of breast cancer with dense breasts. TECHNIQUE: Multi-sequence multi-echo imaging of both breasts was performed with a dedicated breast coil. T1-weighted and T2-weighted images were performed before the administration of contrast. T1-weighted images were also performed after the intravenous administration of 17 cc of Clariscan contrast. COMPARISON: Bilateral mammogram dated 03/01/2022, prior breast MRI with contrast dated 01/05/2023. FINDINGS: RIGHT BREAST: Heterogeneously dense fibroglandular tissue with minimal background enhancement. New patchy area of non-mass enhancement in the right breast in the far superior and central aspect of the breast measuring approximately 3.2 cm in width and 1.6 cm anterior to posterior. This area of enhancement is predominantly located in the upper inner quadrant of the breast. While this may represent a focus of asymmetric enhancing glandular tissue, further evaluation with bilateral mammogram and targeted right breast ultrasound with particular attention to the upper inner quadrant is recommended for further evaluation. No other abnormality is identified. LEFT BREAST: Heterogeneously dense fibroglandular tissue with minimal background enhancement. No abnormal enhancing masses or areas of non-mass enhancement in the left breast. No enlarged or abnormal lymph nodes. No abnormality in the visualized regions of the chest or liver. MRI/Breast Bilateral W/O and W IMPRESSION: New area of patchy non-mass enhancement in the upper inner quadrant of the right breast as described. Bilateral diagnostic mammogram and targeted right breast ultrasound for further evaluation is recommended. See discussion above. CATEGORY: BIRADS Category 0: Incomplete. Need additional imaging evaluation. A letter regarding these results will be sent to the patient by the facility within 30 days. Electronically Signed: Andrew Dotson MD at 15:35 EDT ,
== END | disposition home or self-care (01) ==
LOC: MRI 11:02
PROVIDERS: PCP Nurse Practitioner Primary Care; Referring Provider Obstetrics & Gynecology; Visit Provider Obstetrics & Gynecology
DX: R92.30 Dense breasts, unspecified (principal); Z80.3 Family history of malignant neoplasm of breast
CPT/HCPCS: 77049; A9575; C8908

== ENCOUNTER → 2024-02-11 | Outpatient (CLI) | payer BC, SELFPAY ==
[2024-02-11 11:38] LABS: Insulin 6.3 mU/L (2.6-37.6)
[2024-02-11 11:46] LABS: Follicle Stimulating Hormone 9.3 mIU/mL; Glucose 88 mg/dL (74-106)
== END | disposition home or self-care (01) ==
LOC: LAB 10:14
PROVIDERS: PCP Nurse Practitioner Primary Care; Referring Provider Obstetrics & Gynecology; Visit Provider Obstetrics & Gynecology
DX: E28.9 Ovarian dysfunction, unspecified (principal); Z83.3 Family history of diabetes mellitus
CPT/HCPCS: 36415; 82670; 82947; 83001; 83036; 83525; 84403